=== PATIENT | female | born 1990 | race Caucasian/White ===

== ENCOUNTER 2022-10-23 22:42 | Inpatient (IN) ==
[2022-10-23] MEDS ORDERED: Promethazine INJ(RESTRICTED) 25 MG/ML 1 ml VIAL IV PRN (23:32)
[2022-10-23] MEDS ORDERED: Nalbuphine 10 MG/ML 1 ML VIAL IV PRN (23:32)
[2022-10-23] MEDS ORDERED: Buffered Lidocaine 1% SYRIN 1 ml INTRADERM ONE (23:32)
[2022-10-23] MEDS ORDERED: Lactated Ringers 1000 ml BAG 1,000 ML IV ONE (23:32)
[2022-10-23] MEDS ORDERED: Lactated Ringers 1000 ml BAG 1,000 ML IV SCH (23:45)
[2022-10-24 08:10] LABS: Urine Benzodiazepine Screen None Detected (None Detect); Urine Opiates Screen None Detected (None Detect)
[2022-10-24 08:31] LABS: Hematocrit 37 % (35-47); Hemoglobin 12.2 g/dL (12.0-16.0); Mean Corpuscular HGB Conc 33 g/dL (31-36); Mean Corpuscular Hemoglobin 31 pg (27-31); Mean Corpuscular Volume 94 fL (80-97); Mean Platelet Volume 10.7 fL (7.4-10.4); Platelet Count 116 10^3/uL (150-450); Red Blood Count 3.91 10^6 /uL (3.70-4.87); Red Cell Distribution Width 13 % (10-15); White Blood Count 13.5 10^3/uL (3.5-10.8)
[2022-10-24] MEDS ORDERED: Lidocaine 1% VIAL 10 MG/ML VIAL 30 ML ONE (08:35)
[2022-10-24] MEDS ORDERED: OBEPIDURAL (200 ML) 200 ML EPIDURAL ONE (08:36)
[2022-10-24] MEDS ORDERED: Lidocaine 1.5% EPI 1:200,000 30 ML SDV ONE (08:37)
[2022-10-24 08:59] LABS: ABS Lymphocytes 2.4 10^3/ul (1.0-4.8); ABS Monocytes 0.9 10^3/ul (0-0.8); ABS Neutrophils 10.1 10^3/ul (1.5-7.7); Eosinophil % 0.3 %; Lymphocyte % 17.9 %
[2022-10-24] MEDS ORDERED: Lactated Ringers 1000 ml BAG 1,000 ML IV ONE (10:45)
[2022-10-24] MEDS ORDERED: Phenylephrine 40 mcg/mL 10mL (400mcg) SYRINGE IV PUSH PRN ×2 (10:45)
[2022-10-24] MEDS ORDERED: Sodium Citrate/Citric Acid LIQ 15 ML UDC PO PRN (10:45)
[2022-10-24] MEDS ORDERED: OBEPIDURAL (200 ML) 200 ML EPIDURAL SCH (11:00)
[2022-10-24] MEDS ORDERED: Lactated Ringers 1000 ml BAG 1,000 ML IV SCH (11:00)
[2022-10-24 11:11] LABS: Urine Appearance Clear; Urine Bilirubin Negative (Negative); Urine Blood Negative (Negative); Urine Color Straw; Urine Glucose Negative (Negative); Urine Ketones Negative (Negative); Urine Nitrite Negative (Negative); Urine Protein Negative (Negative); Urine Specific Gravity 1.003 (1.002-1.030); Urine Urobilinogen Negative (Negative)
[2022-10-24] MEDS ORDERED: Oxytocin in LR 20,000 MILLI.UNIT/1,000 ML BAG IV SCH ×2 (12:00→18:15)
[2022-10-24] MEDS ORDERED: Glycerin ADULT 2.4 gm SUPP PR PRN (18:02)
[2022-10-24] MEDS ORDERED: Dibucaine 1% OINT 28.35 GM TUBE PR PRN (18:02)
[2022-10-24] MEDS ORDERED: Witch Hazel PAD JAR TOPICAL PRN (18:02)
[2022-10-25 08:10] LABS: ABS Basophils 0.1 10^3/ul (0-0.2); ABS Lymphocytes 2.5 10^3/ul (1.0-4.8); ABS Neutrophils 8.8 10^3/ul (1.5-7.7); Eosinophil % 0.4 %; Hematocrit 33 % (35-47); Hemoglobin 10.9 g/dL (12.0-16.0); Lymphocyte % 20.2 %; Mean Corpuscular HGB Conc 34 g/dL (31-36); Mean Corpuscular Hemoglobin 31 pg (27-31); Mean Corpuscular Volume 93 fL (80-97); Platelet Count 110 10^3/uL (150-450); Red Blood Count 3.48 10^6 /uL (3.70-4.87); Red Cell Distribution Width 13 % (10-15); White Blood Count 12.5 10^3/uL (3.5-10.8)
[2022-10-26 08:15] VITALS: BP 118/68
== END 2022-10-26 14:50 | disposition home or self-care (01) | DRG 560 ==
LOC: MCHOBOUT 22:42 → MCHOB 23:31
PROVIDERS: ADMIT Registered Nurse; ATTEND Registered Nurse